=== PATIENT | male | born 1995 | race Caucasian/White ===

== ENCOUNTER 2018-12-02 11:02 | Observation (INO) | payer BC, OTHER ==
[~2018-12-02] VITALS: Ht 177.8 cm; Wt 115.7 kg
[2018-12-02] MEDS ORDERED: NS 100 ML (IVPB) BAG IV ONE (11:45)
[2018-12-02] MEDS ORDERED: CATHETER FLUSH 10 ML SYR IV PRN (11:45)
[2018-12-02] MEDS ORDERED: RECEIVED CONTRAST (Hold Metformin) IV SCH (11:45)
[2018-12-02] MEDS ORDERED: IOHEXOL 350 MG/ML 100 ML (OMNIPAQUE 350) VIAL IV ONE (11:45)
[2018-12-02 11:50] LABS: BASOPHILS % (AUTO) 0 % (0-10); EOSINOPHILS % (AUTO) 0 % (0-10); HEMATOCRIT 46 % (40-54); HEMOGLOBIN 16.1 G/DL (13.3-17.7); LYMPHOCYTES # (AUTO) 0.6 X 10^3 (1.0-4.0); LYMPHOCYTES % (AUTO) 6 % (12-44); MEAN CORPUSCULAR HEMOGLOBIN 30 PG (25-34); MEAN CORPUSCULAR HGB CONC 35 G/DL (32-36); MEAN CORPUSCULAR VOLUME 86 FL (80-99); MEAN PLATELET VOLUME 10.4 FL (7.4-10.4); MONOCYTES # (AUTO) 0.5 X 10^3 (0.0-1.0); MONOCYTES % (AUTO) 4 % (0-12); NEUTROPHILS # (AUTO) 9.6 X 10^3 (1.8-7.8); NEUTROPHILS % (AUTO) 90 % (42-75); PLATELET COUNT 229 10^3/uL (130-400); RED CELL DISTRIBUTION WIDTH 12.3 % (10.0-14.5); WHITE BLOOD COUNT 10.7 10^3/uL (4.3-11.0)
[2018-12-02 11:52] LABS: BILIRUBIN,URINE NEGATIVE (NEGATIVE); CLARITY,URINE SLIGHTLY CLOUDY; COLOR,URINE YELLOW; GLUCOSE, URINE (UA) NEGATIVE (NEGATIVE); KETONES,URINE NEGATIVE (NEGATIVE); LEUKOCYTE ESTERASE ,URINE 1+ (NEGATIVE); NITRITE,URINE NEGATIVE (NEGATIVE); PH,URINE 6 (5-9); PROTEIN,URINE 1+ (NEGATIVE); UROBILINOGEN,URINE NORMAL (NORMAL)
[2018-12-02 12:00] LABS: BACTERIA,URINE RARE /HPF; WBC,URINE 0-2 /HPF
[2018-12-02 12:10] LABS: BUN/CREATININE RATIO 10; CARBON DIOXIDE 26 MMOL/L (21-32); CHLORIDE 105 MMOL/L (98-107); CREATININE SERUM 1.16 MG/DL (0.60-1.30); POTASSIUM 4.6 MMOL/L (3.6-5.0); SODIUM 141 MMOL/L (135-145)
[2018-12-02 12:11] LABS: ALANINE AMINOTRANSFERASE 92 U/L (0-55); ALBUMIN 4.7 GM/DL (3.2-4.5); ALKALINE PHOSPHATASE 74 U/L (40-136); AMYLASE 102 U/L (25-125); BILIRUBIN,TOTAL 0.7 MG/DL (0.1-1.0); GFR ESTIMATED > 60; GLUCOSE 103 MG/DL (70-105); LIPASE 108 U/L (8-78)
--- NOTE | 2018-12-02 12:19 | ED Abdominal Pain ---
General Chief Complaint: Abdominal/GI Problems Stated Complaint: R ABD PAIN/ LOWER BACK PAIN Source of Information: Patient Exam Limitations: No Limitations History of Present Illness Date Seen by Provider: Dec 02, 2018 Time Seen by Provider: 11:35 Initial Comments 23-year-old male who presents to the emergency room with complaints of right lower quadrant abdominal pain that radiates to his back into his right groin for the past 24 hours. Reports mild nausea denies vomiting. Denies need for pain medication at this time. Timing/Duration: 24 Hours Severity/Quality: Aching, Dull Location: RLQ Radiation: Back, Groin Activities at Onset: None Associated Symptoms: Nausea/Vomiting Allergies and Home Medications Allergies Coded Allergies: No Known Drug Allergies (Unverified , 12/02/18) Patient Home Medication List Home Medication List Reviewed: Yes Review of Systems Review of Systems Constitutional: no symptoms reported, see HPI Gastrointestinal: See HPI, Abdominal Pain, Nausea Musculoskeletal: see HPI, back pain All Other Systems Reviewed Negative Unless Noted: Yes Past Noeokzx-Eqxizm-Rhzytk Hx Past Med/Social Hx: Reviewed Nursing Past Med/Soc Hx Patient Social History Alcohol Use: Denies Use Recreational Drug Use: No Smoking Status: Never a Smoker Recent Foreign Travel: No Contact w/Someone Who Travel: No Recent Hopitalizations: No Seasonal Allergies Seasonal Allergies: No Past Medical History Surgeries: No Respiratory: No Cardiac: No Neurological: No Genitourinary: No Gastrointestinal: No Musculoskeletal: No Endocrine: No HEENT: No Cancer: No Psychosocial: No Integumentary: No Blood Disorders: No Family Medical History Reviewed Nursing Family Hx Physical Exam Vital Signs Vital Signs - First Documented 12/02/18 11:48 Temp 100.8 Pulse 111 Resp 14 B/P (MAP) 122/87 (99) Pulse Ox 97 O2 Delivery Room Air Capillary Refill : Height/Weight/BMI Height: '" Weight: lbs. oz. kg; BMI Method: General Appearance: WD/WN, no apparent distress Respiratory: chest non-tender, lungs clear, normal breath sounds, no respiratory distress, no accessory muscle use Cardiovascular: normal peripheral pulses, regular rate, rhythm, no edema, no gallop, no JVD, no murmur Gastrointestinal: normal bowel sounds, soft, no organomegaly, no pulsatile mass , tenderness (right lower quadrant tenderness), other (positive psoas sign) Neurologic/Psychiatric: alert, normal mood/affect, oriented x 3 Skin: normal color, warm/dry Progress/Results/Core Measures Results/Orders Lab Results Laboratory Tests Test 12/02/18 11:42 12/02/18 11:45 Range/Units White Blood Count 10.7 4.3-11.0 10^3/uL Red Blood Count 5.40 4.35-5.85 10^6/uL Hemoglobin 16.1 13.3-17.7 G/DL Hematocrit 46 40-54 % Mean Corpuscular Volume 86 80-99 FL Mean Corpuscular Hemoglobin 30 25-34 PG Mean Corpuscular Hemoglobin Concent 35 32-36 G/DL Red Cell Distribution Width 12.3 10.0-14.5 % Platelet Count 229 130-400 10^3/uL Mean Platelet Volume 10.4 7.4-10.4 FL Neutrophils (%) (Auto) 90 H 42-75 % Lymphocytes (%) (Auto) 6 L 12-44 % Monocytes (%) (Auto) 4 0-12 % Eosinophils (%) (Auto) 0 0-10 % Basophils (%) (Auto) 0 0-10 % Neutrophils # (Auto) 9.6 H 1.8-7.8 X 10^3 Lymphocytes # (Auto) 0.6 L 1.0-4.0 X 10^3 Monocytes # (Auto) 0.5 0.0-1.0 X 10^3 Eosinophils # (Auto) 0.0 0.0-0.3 10^3/uL Basophils # (Auto) 0.0 0.0-0.1 10^3/uL Neutrophils % (Manual) 88 % Lymphocytes % (Manual) 10 % Monocytes % (Manual) 1 % Band Neutrophils 1 % Blood Morphology Comment NORMAL Sodium Level 141 135-145 MMOL/L Potassium Level 4.6 3.6-5.0 MMOL/L Chloride Level 105 98-107 MMOL/L Carbon Dioxide Level 26 21-32 MMOL/L Anion Gap 10 5-14 MMOL/L Blood Urea Nitrogen 12 7-18 MG/DL Creatinine 1.16 0.60-1.30 MG/DL Estimat Glomerular Filtration Rate > 60 BUN/Creatinine Ratio 10 Glucose Level 103 70-105 MG/DL Calcium Level 10.0 8.5-10.1 MG/DL Corrected Calcium 8.5-10.1 MG/DL Total Bilirubin 0.7 0.1-1.0 MG/DL Aspartate Amino Transf (AST/SGOT) 35 H 5-34 U/L Alanine Aminotransferase (ALT/SGPT) 92 H 0-55 U/L Alkaline Phosphatase 74 40-136 U/L Total Protein 8.0 6.4-8.2 GM/DL Albumin 4.7 H 3.2-4.5 GM/DL Amylase Level 102 25-125 U/L Lipase 108 H 8-78 U/L Urine Color YELLOW Urine Clarity SLIGHTLY CLOUDY Urine pH 6 5-9 Urine Specific [place] 1.020 1.016-1.022 Urine Protein 1+ H NEGATIVE Urine Glucose (UA) NEGATIVE NEGATIVE Urine Ketones NEGATIVE NEGATIVE Urine Nitrite NEGATIVE NEGATIVE Urine Bilirubin NEGATIVE NEGATIVE Urine Urobilinogen NORMAL NORMAL MG/DL Urine Leukocyte Esterase 1+ H NEGATIVE Urine RBC (Auto) NEGATIVE NEGATIVE Urine RBC NONE /HPF Urine WBC 0-2 /HPF Urine Crystals NONE /LPF Urine Bacteria RARE /HPF Urine Casts NONE /LPF Urine Mucus LARGE H /LPF Urine Culture Indicated NO My Orders Orders - ANGELICA FREEMAN Comprehensive Metabolic Panel (12/02/18 11:40) Lipase (12/02/18 11:40) Amylase (12/02/18 11:40) Ua Culture If Indicated (12/02/18 11:40) Saline Lock/Iv-Start (12/02/18 11:40) Cbc With Automated Diff (12/02/18 11:40) Ct Abd/Pelv W (Appendicitis) (12/02/18 11:40) Iohexol Injection (Omnipaque 350 Mg/Ml 1 (12/02/18 11:45) Contrast Received (Contrast Received) (12/02/18 11:45) Sodium Chloride Flush (Catheter Flush Sy (12/02/18 11:45) Ns (Ivpb) (Sodium Chloride 0.9% Ivpb Bag (12/02/18 11:45) Manual Differential (12/02/18 11:42) Medications Given in ED Current Medications Medications Dose Ordered Sig/Mary Route Start Time Stop Time Status Last Admin Dose Admin Iohexol 100 ml ONCE ONCE IV 12/02/18 11:45 12/02/18 11:47 DC 12/02/18 12:00 100 ML Sodium Chloride 10 ml NEEDED PRN IV 12/02/18 11:45 12/02/18 12:00 10 ML Sodium Chloride 100 ml ONCE ONCE IV 12/02/18 11:45 12/02/18 11:47 DC 12/02/18 12:00 80 ML Vital Signs/I&O 12/02/18 11:48 Temp 100.8 Pulse 111 Resp 14 B/P (MAP) 122/87 (99) Pulse Ox 97 O2 Delivery Room Air Progress Progress Note : Time: 12:27 Progress Note I have seen and evaluated the patient. I've informed him of his laboratory and imaging studies. I discussed the case with Dr. Moody and he agrees to accept the patient to his services. He plans to do surgery at 1300 tomorrow and have the patient on Cipro and Flagyl for antibiotic coverage until that time. Patient agrees with plan of care Departure Communication (Admissions) Time/Spoke to Admitting Phy: 12:27 Dr. MOODY Impression Primary Impression: Appendicitis Additional Impression: Appendicolith Disposition: ADMITTED INPATIENT Condition: Stable/Unchanged Admissions Decision to Admit Reason: Admit from ER (General) Decision to Admit/Date: Dec 02, 2018 Time/Decision to Admit Time: 12:44 Departure-Patient Inst. Referrals: NO,LOCAL PHYSICIAN (PCP/Family) Primary Care Physician ANGELICA FREEMAN Dec 02, 2018 12:19
--- NOTE | 2018-12-02 12:20 | Diagnostic Imaging Report ---
PROCEDURE: CT abdomen and pelvis with contrast, rule out appendicitis. TECHNIQUE: Multiple contiguous axial images were obtained through the abdomen and pelvis after the administration of intravenous contrast. INDICATION: Right lower quadrant abdominal pain. COMPARISON: None. FINDINGS: Lung bases are clear. The heart is normal in size. There is no pericardial effusion. The liver appears normal. The spleen appears normal. The pancreas and adrenal glands are unremarkable. The kidneys appear normal. The bowel loops are nondistended without evidence of obstruction. The ascending colon is located slightly to the left of midline. There is an acute appendicitis, with the appendix measuring 2 cm in size and a large appendicolith seen at the base measuring up to 0.9 x 2.3 cm in size. There is surrounding inflammatory change. No free air or periappendiceal fluid collection is seen. There is mild diverticulosis of the descending colon without diverticulitis seen. IMPRESSION: Acute appendicitis with large appendicolith. No free air or periappendiceal fluid collection is seen. Please note that the ascending colon lies slightly to the left of midline, with the cecum at the midline of the pelvis. Dictated by: Dictated on workstation # [id number]
[2018-12-02 12:24] LABS: BAND NEUTROPHILS 1 %; LYMPHOCYTES % (MANUAL) 10 %; MONOCYTES % (MANUAL) 1 %; NEUTROPHILS % (MANUAL) 88 %; RBC MORPH NORMAL
--- NOTE | 2018-12-02 13:30 | NUR ---
Pt. brought to room via wheel chair accompanied by staff and friend. Pt. oriented to room and call light. Pt. instructed on clear liquid diet. No needs at this time.
[2018-12-02 13:39] VITALS: BP 122/78
[2018-12-02] MEDS ORDERED: ONDANSETRON 4 MG/2 ML (SDV) Z0FRAN IV PRN (13:45)
[2018-12-02] MEDS ORDERED: fentaNYL INJECTION 100 MCG/2 ML AMP IV PRN (13:45)
[2018-12-02] MEDS ORDERED: NS IV 1000 ML 1,000 ML IV SCH (13:45)
[2018-12-02] MEDS ORDERED: metroNIDAZOLE 500 MG/100 ML IVPB (PRE-MIX) IV SCH (14:00)
[2018-12-02] MEDS ORDERED: CIPROFLOXACIN 400 MG/D5W 200 ML (PRE-MIX) IV SCH (14:00)
[2018-12-02] MEDS ORDERED: FLU QUADRIvalent (5+ YOA) 2018-2019 (AFLURIA) 0.5 ML IM ONE (14:15)
--- NOTE | 2018-12-02 15:00 | NUR ---
Patient's mom requesting patient be taken to [facility] for surgery. electronic gaming device supervisor notified.
[2018-12-02 15:57] VITALS: BP 148/87
--- NOTE | 2018-12-02 17:00 | NUR ---
Pt. given discharge instructions by Dross Skimmer. IV removed with catheter intact. Patient's father is here to pick him up and take him to [facility] for surgery by private vehicle. Patient left room ambulatory accompanied by staff.
[2018-12-02 17:18] VITALS: BP 148/87
== END 2018-12-02 17:00 | disposition home or self-care (01) ==
LOC: ER 11:04 → 4TH 12:38 → UNDOADMOB 12:38 → 4TH 13:30 → UNDODISOB 17:00
PROVIDERS: ADMIT Surgery; ATTEND Surgery
DX: K35.80 Unspecified acute appendicitis (principal)
CPT/HCPCS: 36415; 74177; 80053; 81000; 82150; 83690; 85007; 85027